=== PATIENT | female | born 1960 | race Caucasian/White ===

== ENCOUNTER 2018-09-17 13:58 | Inpatient (IN) | payer OTHER ==
[~2018-09-17] VITALS: Ht 58.4 cm; Wt 68.0 kg
[2018-09-17] MEDS ORDERED: COZAAR50 MG (15:01)
--- NOTE | 2018-09-17 15:01 | NUR ---
SE RECIBE PTE ALERT Y ORIENTADA X3,REFIERE DOLOR ABDOMINAL ,REFIERE QUE ES DIVERTICULOS,ESCLOFRIOS.
--- NOTE | 2018-09-17 17:59 | NUR ---
SE ORIENTA PTE SOBRE TRATAMEINTO. SE ERIKA MUESTRAS DE SNAGRE Y SE CANALIZA PERIFERALMENTE. SE ADMINISTRAN MEDICAMENTOS ORDENADOS. SE NOTIFICA A PERSONAL DE CT PARA ESTUDIO PENDIENTE.
--- NOTE | 2018-09-17 23:20 | NUR ---
SE RECIBE PTE EN OBEY CON BARANDAS ELEVADA TIMBRE ACCESIBLE PTE ALERTA Y CONCIENTE POR 3, SE OBSERVA VENOPUNCION PATENTE Y ALEM DE EDEMA PTE EN ESPERA DEL DR HUERTA PTE SE MANTIENE EN OBSERVACION Y BAJO TRATAMIENTO.
--- NOTE | 2018-09-18 07:42 | NUR ---
SE RECIBE PTE ALERTA Y ORIENTADA X 3 EFERAS, EN CAMA NIVEL MAS BAJO, VELÁZQUEZ D EIDNETIFICACION Y BRAANDAS ELEVADAS POR PRECAUCION. SE OBSERVA CON BUEN PATRON RESPIRATORIO Y PIEL TIBIA AL TACTO. IV PATENTE Y ALEM DE EDEMA O ERITEMA CON 0.45% NACL @125ML/HR. PTE PENDIENTE A CONSULTA CON DR SOLARES. SE MANTIENE BAJO OBSERVACION.
[2018-09-22] MEDS ORDERED: PROBIOTIC1 EACH PO (09:42)
[2018-09-22] MEDS ORDERED: PROTONIX40 MG PO (09:42)
[2018-09-22] MEDS ORDERED: METRONIDAZOLE500 MG PO (09:42)
[2018-09-22] MEDS ORDERED: CIPRO500 MG PO (09:42)
== END 2018-09-22 11:19 | disposition home or self-care (01) | DRG 392 ==
LOC: ER 13:58 → MEDI 09-18 11:21 → SEC-K 09-18 11:21 → MEDI 09-18 16:19 → MEDJ 09-21 14:37
PROVIDERS: ADMIT Internal Medicine
DX: K57.30 Diverticulosis of large intestine without perforation or abscess without bleeding (principal); F32.1 Major depressive disorder, single episode, moderate; I10 Essential (primary) hypertension